=== PATIENT | female | born 1950 | race Caucasian/White ===

== ENCOUNTER 2019-06-07 08:48 | Emergency (ER) | payer MEDICARE ==
[~2019-06-07] VITALS: Ht 147.3 cm; Wt 58.0 kg
[~2019-06-07 08:48] MED LIST: FLUC150T PO; NITR-58 PO
[2019-06-07 08:56] VITALS: BP 145/87; PULSE 66; RESP 18; Ht 147.3 cm; Wt 58.0 kg
== END 2019-06-07 11:00 | disposition home or self-care (01) ==
LOC: FTE 08:48
DX: N76.0 Acute vaginitis (principal); E11.9 Type 2 diabetes mellitus without complications
CPT/HCPCS: 81001; 87086; 87210; 99284